=== PATIENT | female | born 1980 | race Caucasian/White ===

== ENCOUNTER 2019-02-09 10:57 | Outpatient (CLI) | payer BC ==
--- NOTE | 2019-02-09 13:14 | RAD ---
Hysterosalpingogram HISTORY: Infertility. FINDINGS: After explaining the procedure and answering all questions, the uterine cervix was exposed and prepped with Betadine. HSG catheter was carefully inserted through the cervical canal and balloon inflated in the endometrial cavity. Small amount of Isovue contrast was carefully instilled i nto the uterine cavity, demonstrating normal capacity and contour. There was immediate opacification of the normal-appearing bilateral fallopian tubes with free spill from each tube. Access contrast was aspirated and catheter removed. Patient tolerated the procedure well and was dism issed in good condition. IMPRESSION: Patent bilateral fallopian tubes. Normal HSG.
[2019-02-09] MEDS ORDERED: Iopamidol 300 61% 30 ML VIAL ONE (13:23)
== END 2019-02-09 10:58 | disposition home or self-care (01) ==
LOC: RAD 10:57
PROVIDERS: ATTEND Obstetrics & Gynecology
DX: N97.9 Female infertility, unspecified (principal)
CPT/HCPCS: 58340; 74740; Q9967

== ENCOUNTER 2020-03-25 08:17 | Outpatient (CLI) | payer BC, OTHER ==
[2020-03-25 17:49] LABS: SARS-CoV-2 MS2 Positive; SARS-CoV-2 N Gene Negative; SARS-CoV-2 S Gene Negative; SARS-CoV-2 by NAA Not Detected (NotDetected); SARS-CoV-2 orf1ab Negative
== END 2020-03-25 08:18 | disposition home or self-care (01) ==
LOC: LABBT 08:17
PROVIDERS: ATTEND Obstetrics & Gynecology
DX: Z20.828 Contact with and (suspected) exposure to other viral communicable diseases (principal)
CPT/HCPCS: 87635; U0003

== ENCOUNTER 2020-03-27 05:30 | Inpatient (IN) | payer BC ==
[2020-03-27] MEDS ORDERED: Misoprostol 200 MCG TAB PR PRN (05:59)
[2020-03-27] MEDS ORDERED: Carboprost 250 MCG/ML AMP IM PRN (05:59)
[2020-03-27] MEDS ORDERED: Acetaminophen 500 MG TAB PO PRN (05:59)
[2020-03-27] MEDS ORDERED: Promethazine HCl 25 MG/ML VIAL IM PRN ×2 (05:59→07:40)
[2020-03-27] MEDS ORDERED: hydrALAZINE 20 MG/ML VIAL SLOW IVP PRN ×2 (05:59→12:53)
[2020-03-27] MEDS ORDERED: Lidocaine 1% (PF) 30 ML VIAL SC PRN (05:59)
[2020-03-27] MEDS ORDERED: Ondansetron PF 4 MG/2 ML Vial IVP PRN ×2 (05:59→07:40)
[2020-03-27] MEDS ORDERED: HYDROcodone/Acetaminophen 5/325 mg Tablet PO PRN (05:59)
[2020-03-27] MEDS ORDERED: Ibuprofen 800 MG TAB PO PRN (05:59)
[2020-03-27] MEDS ORDERED: NS w/ Oxytocin 10 units 500 ML IV SCH (05:59)
[2020-03-27] MEDS ORDERED: Diphenoxylate HCl/Atropine Tablet PO PRN ×2 (05:59)
[2020-03-27] MEDS ORDERED: NS / Oxytocin 40 units/1000ml 1,000 ML IV PRN (05:59)
[2020-03-27] MEDS ORDERED: Butorphanol Tartrate 1 MG/ML VIAL SLOW IVP PRN (05:59)
[2020-03-27 06:10] VITALS: BMI 26.0
[2020-03-27] MEDS: Lactated Ringer's 1,000 ML IV SCH ×2 (06:20→08:00)
[2020-03-27 06:40] LABS: Mean Corpuscular HGB CONC 33.9 g/dL (32.0-36.0); Mean Corpuscular Volume 88.4 fL (78.0-98.0); Mean Platelet Volume 9.8 fL (7.4-10.4); Platelet Count 137 thou/uL (130-400); RBC Distribution Width 11.8 % (11.5-14.5); Red Blood Cell (RBC) Count 3.68 mill/uL (4.20-5.40); White Blood Cell (WBC) Count 5.7 thou/uL (4.8-10.8)
[2020-03-27] MEDS ORDERED: Fentanyl 4 mcg/Bup 0.1% Cadd 100 ML ONE (06:53)
[2020-03-27 07:28] LABS: Syphilis Antibody Nonreactive (Nonreactive); Syphilis Antibody Index 0.09 S/CO (<1.00 Non-Reactive)
[2020-03-27 07:29] LABS: Hep B Surf Ag Non-Reactive S/CO (NonReactive)
[2020-03-27] MEDS ORDERED: diphenhydrAMINE 50 MG/ML VIAL IVP PRN (07:40)
[2020-03-27] MEDS ORDERED: Lactated Ringer's 500 ML IV PRN (07:40)
[2020-03-27] MEDS ORDERED: Acetaminophen 325 MG TAB PO PRN (07:40)
[2020-03-27] MEDS ORDERED: Naloxone HCl 0.4 mg/ml Vial IVP PRN ×2 (07:40)
[2020-03-27] MEDS ORDERED: Communication Order-Pharmacy FS SCH (07:45)
[2020-03-27] MEDS ORDERED: Fentanyl 4 mcg/Bupivacaine 0.1% Cassette 100 ML EPIDURAL SCH (07:45)
[2020-03-27] MEDS ORDERED: ePHEDrine 50 MG/ML VIAL SLOW IVP PRN (07:52)
[2020-03-27] MEDS ORDERED: NS w/ Oxytocin 10 units 500 ML ONE (08:18)
[2020-03-27] MEDS ORDERED: Calcium Carbonate 500 MG ChewTAB PO PRN ×2 (10:29→19:56)
[2020-03-27] MEDS ORDERED: NS / Oxytocin 40 units/1000ml 1,000 ML ONE (12:01)
[2020-03-27] MEDS ORDERED: Lidocaine 1% (PF) 30 ML VIAL ONE (12:01)
[2020-03-27] MEDS ORDERED: Benzocaine-Menthol 82.5 ML CAN TOP PRN (12:53)
[2020-03-27] MEDS ORDERED: Milk Of Magnesia 30 ML UDCUP PO PRN (12:53)
[2020-03-27] MEDS ORDERED: Bisacodyl 10 MG SUPP PR PRN (12:53)
[2020-03-27] MEDS ORDERED: Preparation H Ointment 28 GM TUBE PR PRN (12:53)
[2020-03-27] MEDS ORDERED: Adacel (T-DAP) 0.5 ML SYRINGE IM ONE (12:53)
[2020-03-27] MEDS ORDERED: Lanolin Ointment 7 GM TUBE TOP PRN (12:53)
--- NOTE | 2020-03-27 12:53 | PDOC.OPDEL ---
OB Operative/Delivery Note Delivery Dr/Surgeon: Bill Pre-Delivery Diagnosis: elective induction Procedure/Post Delivery Dx: spontaneous vaginal delivery Weeks gestation: 39 Anesthesia: epidural - Findings A Sex: female - 1 min: 8 - 5 min: 9 - Additional Findings/Plan Placenta delivered: spontaneous Repaired Obstetrical Laceration: 2nd degree Estimated blood loss: 100ml qbl Post delivery plan: routine recovery
[2020-03-27] MEDS ORDERED: NS / Oxytocin 40 units/1000ml 1,000 ML IV SCH (13:00)
[2020-03-27] MEDS: Ibuprofen 800 MG TAB PO SCH ×2 (15:17→23:40)
[2020-03-27] MEDS: Ferrous Sulfate 325 MG TAB PO SCH (15:50)
[2020-03-27] MEDS: traMADol HCl 50 MG TAB PO PRN (20:01)
[2020-03-27] MEDS: Docusate Calcium (SURFAK) 240 MG CAP PO SCH (20:01)
[2020-03-28] MEDS: Ferrous Sulfate 325 MG TAB PO SCH (08:18)
[2020-03-28] MEDS: Ibuprofen 800 MG TAB PO SCH ×2 (08:19→16:01)
[2020-03-28] MEDS: Docusate Calcium (SURFAK) 240 MG CAP PO SCH (08:19)
[2020-03-28] MEDS ORDERED: Prenatal Vitamin 1 TAB PO SCH (09:00)
--- NOTE | 2020-03-28 10:47 | PDOC.PP ---
Post Progress Note Post Day #: 1 PO intake tolerated: yes Flatus: yes Ambulation: yes Vital Signs (12 hours) Temp Pulse Resp BP Pulse Ox 03/28/20 08:20 98.4 F 70 16 126/77 99 03/28/20 03:45 98.2 F 77 16 122/72 03/27/20 23:40 98.5 F 80 16 119/62 Weight Weight 138 lb - Physical Examination Abdominal: lochia, no distention, appropriately TTP Extremities: negative homans (B) Result Diagrams: 03/27/20 06:22 Additional Labs: Post Labs Hep Bs Antigen Non-Reactive S/CO (NonReactive) 03/27/20 06:22 Blood Type A POSITIVE 03/27/20 06:22 - Assessment/Plan Doing well post day 1. ready for discharge. f/u 6 weeks.
[2020-03-28 12:38] VITALS: BP 114/67; TEMP 98.2
[2020-03-28] MEDS: traMADol HCl 50 MG TAB PO PRN (14:30)
== END 2020-03-28 17:25 | disposition home or self-care (01) | DRG 807 ==
LOC: L&D 05:34 → 3SW 14:55
PROVIDERS: ADMIT Obstetrics & Gynecology; ATTEND Obstetrics & Gynecology
PROC: 10E0XZZ Delivery of Products of Conception, External Approach (ICD-10-PCS; principal; 2020-03-27)
PROC: 10907ZC Drainage of Amniotic Fluid, Therapeutic from Products of Conception, Via Natural or Artificial Opening (ICD-10-PCS; 2020-03-27)
PROC: 3E033VJ Introduction of Other Hormone into Peripheral Vein, Percutaneous Approach (ICD-10-PCS; 2020-03-27)
DX: O70.1 Second degree perineal laceration during delivery (principal); Z37.0 Single live birth; Z3A.39 39 weeks gestation of pregnancy; Z20.828 Contact with and (suspected) exposure to other viral communicable diseases
CPT/HCPCS: 36415; 51702; 85027; 86780; 86850; 86900; 86901; 87340; 87635; U0003